=== PATIENT | male | born 1955 | race Hispanic/Latino ===

== ENCOUNTER 2017-11-13 13:33 | Emergency (ER) | payer BC ==
[2017-11-13 14:34] VITALS: BMI 27.3
[2017-11-13 14:38] VITALS: RESP 18; TEMP 97.5
--- NOTE | 2017-11-13 15:10 | ED PDOC ---
Arrival/HPI - General Chief Complaint: ENT Problem Time Seen by Provider: 11/13/17 14:58 Historian: Patient - History of Present Illness Narrative History of Present Illness (Text): 11/13/17 15:00 This 62 yo male with pmh GERD, HTN, colon resection presents to this ED c/o FB sensation on his esophagus after eating a sandwich x 5 hours. Patient stated he was able to drink 1/2 bottle of water without difficulty. Patient denies similar symptoms in the past. Patient denies sob, fever, cp, hemoptysis, n/v, abdominal pain, neck pain, dizziness, rectal bleeding, urinary symptoms or abnormal gait. Time/Duration: Other (noncontributory) Context: Home Past Medical History - Provider Review Nursing Documentation Reviewed: Yes - Infectious Disease Hx of Infectious Diseases: None - Tetanus Immunization Tetanus Immunization: Up to Date - Past Medical History Past Medical History: No Previous - Cardiac Hx Cardiac Disorders: Yes Hx Hypertension: Yes - Pulmonary Hx Respiratory Disorders: Yes Hx Sleep Apnea: Yes (uses cpap at home) - Neurological Hx Neurological Disorder: No Hx Paralysis: No - HEENT Hx HEENT Disorder: No - Renal Hx Renal Disorder: No - Endocrine/Metabolic Hx Endocrine Disorders: Yes Hx Diabetes Mellitus Type 2: Yes - Hematological/Oncological Hx Blood Disorders: Yes Hx Anemia: Yes Hx Blood Transfusions: Yes Hx Blood Transfusion Reaction: No - Integumentary Hx Dermatological Disorder: No - Musculoskeletal/Rheumatological Hx Musculoskeletal Disorders: No - Gastrointestinal Hx Gastrointestinal Disorders: No - Genitourinary/Gynecological Hx Genitourinary Disorders: Yes Hx Prostate Problems: Yes (enlarged) Hx Urinary Tract Infection: Yes - Psychiatric Hx Psychophysiologic Disorder: No Hx Emotional Abuse: No Hx Physical Abuse: No Hx Substance Use: No - Past Surgical History Past Surgical History: No Previous - Surgical History Hx Tonsillectomy: Yes Other/Comment: hernia as an , tonsillectomy, laser prostate sx - Anesthesia Hx Anesthesia: Yes Hx Anesthesia Reactions: No Hx Malignant Hyperthermia: No - Suicidal Assessment Feels Threatened In Home Enviroment: No Family/Social History - Physician Review Nursing Documentation Reviewed: Yes Family/Social History: Other (noncontributory) Smoking Status: Never Smoked Hx Alcohol Use: No Hx Substance Use: No Hx Substance Use Treatment: No Allergies/Home Meds Allergies/Adverse Reactions: Allergies No Known Allergies Allergy (Verified 11/17/16 14:41) Home Medications: Home Meds Medication Instructions Recorded Confirmed Ferrous Sulfate [Feosol] 324 mg PO DAILY 06/13/16 11/13/17 Lisinopril [Zestril] 10 mg PO QAM 06/13/16 11/13/17 Pantoprazole [Protonix] 40 mg PO QAM 06/13/16 11/13/17 Review of Systems - Review of Systems Constitutional: Normal. absent: Fatigue, Weight Change, Fevers, Night Sweats Eyes: Normal ENT: Normal Respiratory: Normal. absent: SOB, Cough Cardiovascular: Normal. absent: Chest Pain, Palpitations Gastrointestinal: Other (see hpi). absent: Abdominal Pain, Stool Changes, Constipation, Diarrhea, Nausea, Vomiting, Appetite Changes, Hematochezia, Hematemesis, Anorexia, Food Intolerance Genitourinary Male: Normal. absent: Dysuria, Frequency Musculoskeletal: Normal. absent: Back Pain, Neck Pain Skin: Normal. absent: Rash Neurological: Normal. absent: Headache, Dizziness Endocrine: Normal Hemo/Lymphatic: Normal Psychiatric: Normal Physical Exam Vital Signs Temp Pulse Resp BP Pulse Ox 11/13/17 19:04 86 18 131/71 97 11/13/17 16:00 94 H 18 135/86 96 11/13/17 14:35 97.5 F L 100 H 18 139/93 H 96 Temperature: Afebrile Blood Pressure: Normal Pulse: Regular Respiratory Rate: Normal Appearance: Positive for: Well-Appearing, Non-Toxic, Comfortable Pain Distress: None Mental Status: Positive for: Alert and Oriented X 3 - Systems Exam Head: Present: Atraumatic, Normocephalic Pupils: Present: PERRL Extroacular Muscles: Present: EOMI Conjunctiva: Present: Normal Mouth: Present: Moist Mucous Membranes Neck: Present: Normal Range of Motion Respiratory/Chest: Present: Clear to Auscultation, Good Air Exchange. No: Respiratory Distress, Accessory Muscle Use Cardiovascular: Present: Regular Rate and Rhythm, Normal S1, S2. No: Murmurs Abdomen: Present: Normal Bowel Sounds. No: Tenderness, Distention, Peritoneal Signs, Rebound, Guarding Back: Present: Normal Inspection. No: CVA Tenderness Upper Extremity: Present: Normal Inspection. No: Cyanosis, Edema Lower Extremity: Present: Normal Inspection. No: Edema Neurological: Present: GCS=15, CN II-XII Intact, Speech Normal, Motor Func Grossly Intact, Normal Sensory Function, Normal Cerebellar Funct, Gait Normal Skin: Present: Warm, Dry, Normal Color. No: Rashes Psychiatric: Present: Alert, Oriented x 3, Normal Insight, Normal Concentration Medical Decision Making ED Course and Treatment: 11/13/17 19:44 Patient tolerated PO fluids. Dr. Romeo examined patient. He recommended liquid diet for at least 2 days. To f/u PMD for GI referral. Re-evaluation Time: 19:44 Reassessment Condition: Re-examined, Improved - Lab Interpretations Lab Results: 11/13/17 15:15 11/13/17 15:15 Lab Results 11/13/17 15:15: Sodium 143, Potassium 4.1, Chloride 107, Carbon Dioxide 28, Anion Gap 11, BUN 26 H, Creatinine 0.9, Est GFR ( Amer) > 60, Est GFR ( Non-Af Amer) > 60, Random Glucose 165 H, Calcium 9.3, Total Bilirubin 0.6, AST 21, ALT 40, Alkaline Phosphatase 63, Total Protein 6.7, Albumin 3.7, Globulin 3.0, Albumin/Globulin Ratio 1.2, Lipase 102 11/13/17 15:15: PT 11.8, INR 1.03, APTT 29.9 11/13/17 15:15: WBC 6.0, RBC 4.84, Hgb 14.7, Hct 43.1, MCV 89.0, MCH 30.4, MCHC 34.1, RDW 12.7, Plt Count 136, MPV 11.9 H, Gran % 76.4 H, Lymph % (Auto) 13.3 L , [place] % (Auto) 6.5 H, Eos % (Auto) 3.5, Baso % (Auto) 0.3, Gran # 4.61, Lymph # (Auto) 0.8 L, [place] # (Auto) 0.4, Eos # (Auto) 0.2, Baso # (Auto) 0.02 I have reviewed the lab results: Yes Interpretation: No clinic. lab abnormalty - RAD Interpretation Narrative RAD Interpretations (Text): 11/13/17 15:37 HISTORY: FB sensation on chest COMPARISON: 11/17/2016 FINDINGS: LUNGS: No active pulmonary disease. PLEURA: No significant pleural effusion identified, no pneumothorax apparent. CARDIOVASCULAR: Normal. OSSEOUS STRUCTURES: No significant abnormalities. VISUALIZED UPPER ABDOMEN: Normal. OTHER FINDINGS: None. IMPRESSION: No active disease. 11/13/17 19:23 PROCEDURE: CT Chest with contrast HISTORY: Foreign body sensation in esophagus. COMPARISON: Comparison made with CTA of the abdomen which image the lower chest 01/13/2016. TECHNIQUE: Contiguous axial images were obtained through the chest with intravenous contrast enhancement. Sagittal and coronal reconstructions were performed. IV contrast: Radiation dose (DLP): 378.38 mGy-cm. This CT exam was performed using one or more of the following dose reduction techniques: Automated exposure control, adjustment of the mA and/or kV according to patient size, and/or use of iterative reconstruction technique. FINDINGS: LUNGS: Mild right atelectasis right posterior sulcus with minimal passive type atelectasis seen in both posterior lower lung zones. There also appears to be some linear scarring in the left lung base and middle lobe regions. No focal consolidation. No evidence of effusion or pneumothorax MEDIASTINUM: Heart size is upper limits of normal/borderline enlarged. No significant pericardial effusion. Ascending thoracic aorta measures approximately 3.3 cm and descending thoracic aorta measures approximately 2.6 cm. Pulmonary trunk measures approximately 2.9 cm. Few small nonspecific mediastinal lymph nodes are present. No significant mediastinal adenopathy. Central airways are midline and patent. No large central endoluminal lesions. Small amount of air is seen intermittently throughout the esophagus however no evidence of radiopaque foreign bodies. There is a small hiatal hernia with minimal wall thickening of the distal esophagus likely due to protrusion of gastric mucosa. Possibility of mild esophagitis not excluded. Followup endoscopy could be performed further evaluation. PLEURA: No effusion or pneumothorax identified. BONES: Mild to moderate multilevel degenerative spondylosis of the thoracic spine. Chronic appearing anterior wedge compression deformity of the T11 and to a lesser degree T9 and T8 as well as T7 segments. UPPER ABDOMEN: The liver exhibits moderate to fairly significant diffuse fatty hepatic infiltration. Re- demonstrated are multiple low-attenuation foci scattered throughout the splenic parenchyma of uncertain etiology Gallbladder is physiologically distended. OTHER FINDINGS: Fatty hepatic infiltration. IMPRESSION: No evidence of radiopaque foreign body seen within the esophagus. Small hiatal hernia with slight wall thickening of the distal esophagus likely due to protrusion gastric mucosa. Possibility of esophagitis not excluded. Followup endoscopy may be prudent for further evaluation to exclude other pathology. Mild bibasilar atelectasis and scarring changes. Fatty hepatic infiltration. Multiple varying sized low-attenuation lesions scattered throughout the splenic parenchyma of uncertain etiology. Rule out infectious, inflammatory of versus neoplastic process. . Clinical correlation recommended. Consider followup pre and post-contrast MRI of the spleen. Radiology Orders: 11/13/17 14:59 CHEST PORTABLE [RAD] Stat 11/13/17 15:00 CHEST W/CONTRAST [CT] Stat - Medication Orders Current Medication Orders: Discontinued Medications Al Hydrox/Mg Hydrox/Simethicone (Maalox Plus 30 Ml) 30 ml PO STAT STA Stop: 11/13/17 19:23 Belladonna/Phenobarbital ( Elixir) 5 ml PO STAT STA Stop: 11/13/17 19:23 Lidocaine HCl (Lidocaine 2% Viscous) 5 ml PO STAT STA Stop: 11/13/17 19:24 Disposition/Present on Arrival - Present on Arrival Any Indicators Present on Arrival: No History of DVT/PE: No History of Uncontrolled Diabetes: No Urinary Catheter: No History of Decub. Ulcer: No History Surgical Site Infection Following: None - Disposition Have Diagnosis and Disposition been Completed?: Yes Diagnosis: Esophagitis, Abnormal CT scan, Dysphagia Disposition: HOME/ ROUTINE Disposition Time: 19:31 Patient Plan: Discharge Patient Problems: Current Active Problems Problem Status Onset Abnormal CT scan Acute Dysphagia Acute Esophagitis Acute Condition: IMPROVED Discharge Instructions (ExitCare): Dysphagia Additional Instructions: Call private doctor for follow up visit in 1-2 days. Take medication as instructed. Return to emergency if symptoms worsen, or unable to swallow, or if new complains arise. Prescriptions: Sucralfate [Carafate] 1 gm PO DAILY #1 bottle Referrals: [facility] Stephanie Chau, [Non-Staff] - Follow up with primary Avelina Cruz MD [Primary Care Provider] - Follow up with primary Deyvi Trujillo MD [Staff Provider] - Follow up with primary Forms: [employer] ([place])
--- NOTE | 2017-11-13 15:25 | RAD ---
HISTORY: FB sensation on chest COMPARISON: 11/17/2016 FINDINGS: LUNGS: No active pulmonary disease. PLEURA: No significant pleural effusion identified, no pneumothorax apparent. CARDIOVASCULAR: Normal. OSSEOUS STRUCTURES: No significant abnormalities. VISUALIZED UPPER ABDOMEN: Normal. OTHER FINDINGS: None. IMPRESSION: No active disease.
[2017-11-13 15:29] LABS: BASO # 0.02 K/mm3 (0.0-2.0); BASO % 0.3 % (0.0-3.0); EOS # 0.2 (0.0-0.7); EOS % 3.5 % (1.5-5.0); GRAN # 4.61 (1.4-6.5); GRAN % 76.4 % (50.0-68.0); HEMOGLOBIN 14.7 g/dL (14.0-18.0); LYMPH # 0.8 (1.2-3.4); LYMPH % 13.3 % (22.0-35.0); MEAN CORPUSCULAR HEMOGLOBIN 30.4 pg (25.0-35.0); MEAN CORPUSCULAR HGB CONC 34.1 g/dl (31.0-37.0); MEAN PLATELET VOLUME 11.9 fl (7.0-11.0); MONO # 0.4 (0.1-0.6); MONO % 6.5 % (1.0-6.0); RBC 4.84 10^6/uL (3.5-6.1); RED CELL DISTRIBUTION WIDTH 12.7 % (11.5-14.5)
[2017-11-13 15:40] LABS: PROTHROMBIN TIME 11.8 SECONDS (9.4-12.5)
[2017-11-13 15:41] LABS: ALB/GLOB RATIO 1.2 (1.1-1.8); ALBUMIN 3.7 g/dL (3.0-4.8); ALT/SGPT 40 U/L (7-56); AST/SGOT 21 U/L (17-59); BLOOD UREA NITROGEN 26 mg/dL (7-21); CALCIUM 9.3 mg/dL (8.4-10.5); GFR AFRICAN-AMERICAN > 60; GFR NON-AFRICAN AMERICAN > 60; INR 1.03 (0.93-1.08); LIPASE 102 U/L (23-300); PARTIAL THROMBOPLASTIN TIME 29.9 Seconds (25.1-36.5)
[2017-11-13] MEDS ORDERED: Iohexol 350 MG/100 ML VIAL ONE (17:21)
[2017-11-13 19:04] VITALS: BP 131/71; PULSE 86; O2SAT 97
--- NOTE | 2017-11-13 19:15 | CT ---
PROCEDURE: CT Chest with contrast HISTORY: Foreign body sensation in esophagus. COMPARISON: Comparison made with CTA of the abdomen which image the lower chest 01/13/2016. TECHNIQUE: Contiguous axial images were obtained through the chest with intravenous contrast enhancement. Sagittal and coronal reconstructions were performed. IV contrast: Radiation dose (DLP): 378.38 mGy-cm. This CT exam was performed using one or more of the following dose reduction techniques: Automated exposure control, adjustment of the mA and/or kV according to patient size, and/or use of iterative reconstruction technique. FINDINGS: LUNGS: Mild right atelectasis right posterior sulcus with minimal passive type atelectasis seen in both posterior lower lung zones. There also appears to be some linear scarring in the left lung base and middle lobe regions. No focal consolidation. No evidence of effusion or pneumothorax MEDIASTINUM: Heart size is upper limits of normal/borderline enlarged. No significant pericardial effusion. Ascending thoracic aorta measures approximately 3.3 cm and descending thoracic aorta measures approximately 2.6 cm. Pulmonary trunk measures approximately 2.9 cm. Few small nonspecific mediastinal lymph nodes are present. No significant mediastinal adenopathy. Central airways are midline and patent. No large central endoluminal lesions. Small amount of air is seen intermittently throughout the esophagus however no evidence of radiopaque foreign bodies. There is a small hiatal hernia with minimal wall thickening of the distal esophagus likely due to protrusion of gastric mucosa. Possibility of mild esophagitis not excluded. Followup endoscopy could be performed further evaluation. PLEURA: No effusion or pneumothorax identified. BONES: Mild to moderate multilevel degenerative spondylosis of the thoracic spine. Chronic appearing anterior wedge compression deformity of the T11 and to a lesser degree T9 and T8 as well as T7 segments. UPPER ABDOMEN: The liver exhibits moderate to fairly significant diffuse fatty hepatic infiltration. Re- demonstrated are multiple low-attenuation foci scattered throughout the splenic parenchyma of uncertain etiology Gallbladder is physiologically distended. OTHER FINDINGS: Fatty hepatic infiltration. IMPRESSION: No evidence of radiopaque foreign body seen within the esophagus. Small hiatal hernia with slight wall thickening of the distal esophagus likely due to protrusion gastric mucosa. Possibility of esophagitis not excluded. Followup endoscopy may be prudent for further evaluation to exclude other pathology. Mild bibasilar atelectasis and scarring changes. Fatty hepatic infiltration. Multiple varying sized low-attenuation lesions scattered throughout the splenic parenchyma of uncertain etiology. Rule out infectious, inflammatory of versus neoplastic process. . Clinical correlation recommended. Consider followup pre and post-contrast MRI of the spleen.
[2017-11-13] MEDS ORDERED: Atrop/Hyosc/Scopal/PB Elixir (120 ml) PO STA (19:22)
[2017-11-13] MEDS ORDERED: Alum-Mag Hydrox-Simethicone Susp (30 mL) PO STA (19:22)
== END 2017-11-13 20:00 | disposition home or self-care (01) ==
LOC: ED 13:33
DX: K20.9 Esophagitis, unspecified (principal); R13.10 Dysphagia, unspecified; R93.8 Abnormal findings on diagnostic imaging of other specified body structures
CPT/HCPCS: 71045; 71260; 80053; 83690; 85025; 85610; 85730; 99283; Q9967

== ENCOUNTER 2018-11-06 20:29 | Emergency (ER) | payer SELFPAY ==
[2018-11-06 20:50] VITALS: BMI 28.1
[2018-11-06 20:52] VITALS: BP 181/109; PULSE 102; RESP 18; TEMP 97.7; O2SAT 95
--- NOTE | 2018-11-06 23:37 | ED PDOC ---
Arrival/HPI - General Chief Complaint: Dental Pain Time Seen by Provider: 11/06/18 21:56 Historian: Patient - History of Present Illness Narrative History of Present Illness (Text): 11/07/18 01:29 63 year old male, whose past medical history includes GERD, hypertension, and diabetes, presents to the emergency department for evaluation of bleeding status post oral surgery procedure. Patient states he had a dental extraction of his right upper tooth today. Patient states when he got home and removed the gauze, he found a lot of blood. Patient got scared and decided to come fore evaluation. Patient is not actively bleeding. But reports a h/o low platelets "many years ago." Patient denies any fever, chills, headache, dizziness, or any other complaint. Time/Duration: Prior to Arrival Symptom Onset: Gradual Symptom Course: Resolved Activities at Onset: Light Context: Home Past Medical History - Provider Review Nursing Documentation Reviewed: Yes - Infectious Disease Hx of Infectious Diseases: None - Tetanus Immunization Tetanus Immunization: Up to Date - Past Medical History Past Medical History: No Previous - Cardiac Hx Cardiac Disorders: Yes Hx Hypertension: Yes - Pulmonary Hx Respiratory Disorders: Yes Hx Sleep Apnea: Yes (uses cpap at home) - Neurological Hx Neurological Disorder: No Hx Paralysis: No - HEENT Hx HEENT Disorder: No - Renal Hx Renal Disorder: No - Endocrine/Metabolic Hx Endocrine Disorders: Yes Hx Diabetes Mellitus Type 2: Yes - Hematological/Oncological Hx Blood Disorders: Yes Hx Anemia: Yes Hx Blood Transfusions: Yes - Integumentary Hx Dermatological Disorder: No - Musculoskeletal/Rheumatological Hx Musculoskeletal Disorders: No - Gastrointestinal Hx Gastrointestinal Disorders: No - Genitourinary/Gynecological Hx Genitourinary Disorders: Yes Hx Prostate Problems: Yes (enlarged) Hx Urinary Tract Infection: Yes - Psychiatric Hx Psychophysiologic Disorder: No Hx Substance Use: No - Past Surgical History Past Surgical History: No Previous - Surgical History Hx Tonsillectomy: Yes Other/Comment: hernia as an , tonsillectomy, laser prostate sx - Anesthesia Hx Anesthesia: Yes Hx Anesthesia Reactions: No Hx Malignant Hyperthermia: No - Suicidal Assessment Feels Threatened In Home Enviroment: No Family/Social History - Physician Review Nursing Documentation Reviewed: Yes Family/Social History: No Known Family HX Smoking Status: Never Smoked Hx Alcohol Use: No Hx Substance Use: No Hx Substance Use Treatment: No Allergies/Home Meds Allergies/Adverse Reactions: Allergies No Known Allergies Allergy (Verified 11/17/16 14:41) Home Medications: Home Meds Medication Instructions Recorded Confirmed Ferrous Sulfate [Feosol] 324 mg PO DAILY 06/13/16 11/13/17 Lisinopril [Zestril] 10 mg PO QAM 06/13/16 11/13/17 Pantoprazole [Protonix] 40 mg PO QAM 06/13/16 11/13/17 Review of Systems - Physician Review All systems were reviewed & negative as marked: Yes - Review of Systems Constitutional: absent: Fevers, Night Sweats Neurological: absent: Headache, Dizziness Physical Exam Vital Signs Reviewed: Yes Vital Signs Temp Pulse Resp BP Pulse Ox 11/06/18 20:51 97.7 F 102 H 18 181/109 H 95 Temperature: Afebrile Blood Pressure: Hypertensive Pulse: Tachycardic Respiratory Rate: Normal Appearance: Positive for: Well-Appearing, Non-Toxic, Comfortable Pain Distress: None Mental Status: Positive for: Alert and Oriented X 3 - Systems Exam Head: Present: Atraumatic, Normocephalic Pupils: Present: PERRL Extroacular Muscles: Present: EOMI Conjunctiva: Present: Normal Mouth: Present: Moist Mucous Membranes, Normal Lips, Normal Tounge. No: Normal Teeth (Surgical sutures in place, no active bleeding to the R upper pre-molar that was extracted) Neck: Present: Normal Range of Motion Neurological: Present: GCS=15, CN II-XII Intact, Speech Normal Skin: Present: Warm, Dry, Normal Color. No: Rashes Psychiatric: Present: Alert, Oriented x 3, Normal Insight, Normal Concentration Medical Decision Making ED Course and Treatment: 11/06/18 23:35 Plan : - Labs Labs ordered due to patient's h/o low platelets. However the patient is refusing labs. Patient refuses labs, further care, evaluation or treatment in the ER. Patient informed of the reasons for the following and planned treatment, which patient understands, however still refuses. Patient informed of the risk and benefits of treatment. Informed that the risk could include worsening of current conditions, undiagnosed conditions, disability or even . Patient understands the following risk and the benefits of treatment. Patient has the capacity to make decisions and still refuses treatment by RN, PA and ER MD. Patient encouraged to return to the ER at any time and to follow up with pmd. - PA / [employer] / Resident Statement MD/DO has reviewed & agrees with the documentation as recorded. - Scribe Statement The provider has reviewed the documentation as recorded by the Zoeibe Alli Velazco Provider Scribe Attestation: All medical record entries made by the Scribe were at my direction and personally dictated by me. I have reviewed the chart and agree that the record accurately reflects my personal performance of the history, physical exam, medical decision making, and the department course for this patient. I have also personally directed, reviewed, and agree with the discharge instructions and disposition. Disposition/Present on Arrival - Present on Arrival Any Indicators Present on Arrival: No History of DVT/PE: No History of Uncontrolled Diabetes: No Urinary Catheter: No History of Decub. Ulcer: No History Surgical Site Infection Following: None - Disposition Have Diagnosis and Disposition been Completed?: Yes Diagnosis: Bleeding gums, S/P tooth extraction Disposition: AGAINST MEDICAL ADVICE Disposition Time: 23:30 Patient Plan: Discharge Condition: STABLE Discharge Instructions (ExitCare): Bleeding Gums, Leaving Against Medical Advice Additional Instructions: Thank you for letting us take care of you today. You were treated for bleeding gums, s/p tooth extraction. The emergency medical care you received today was directed at your acute symptoms. It may take several days for your symptoms to resolve. Return to the Emergency Department if your symptoms worsen, do not improve, or if you have any other problems. Please contact your dentist in 2 days for re-evaluation and follow up. Bring any paperwork you were given at discharge with you along with any medications you are taking to your follow up visit. Our treatment cannot replace ongoing medical care by a primary care provider (PCP) outside of the emergency department. Referrals: Avelina Cruz MD [Primary Care Provider] - Follow up with primary Forms: [employer] (Yoruba)
== END 2018-11-06 23:44 | disposition left against medical advice (07) ==
LOC: ED 20:29
DX: K06.8 Other specified disorders of gingiva and edentulous alveolar ridge (principal); Z98.818 Other dental procedure status

== ENCOUNTER → 2018-11-30 | Outpatient (CLI) | payer BC | LOC: RAD 09:15 ==

== ENCOUNTER 2018-12-04 13:14 | Emergency (ER) | payer BC ==
[2018-12-04 13:15] VITALS: BMI 28.1
[2018-12-04 13:47] VITALS: TEMP 97.7
[2018-12-04] MEDS ORDERED: Sodium Chloride 0.9% 1,000 ML IV STA (13:54)
[2018-12-04 14:27] LABS: BASO # 0.01 K/mm3 (0.0-2.0); BASO % 0.1 % (0.0-3.0); EOS % 0.6 % (1.5-5.0); HEMOGLOBIN 14.1 g/dL (14.0-18.0); LYMPH # 0.6 (1.2-3.4); LYMPH % 7.9 % (22.0-35.0); MEAN CELL VOLUME 88.3 fl (80.0-105.0); MEAN CORPUSCULAR HEMOGLOBIN 29.4 pg (25.0-35.0); MEAN CORPUSCULAR HGB CONC 33.3 g/dl (31.0-37.0); MEAN PLATELET VOLUME 11.9 fl (7.0-11.0); MONO # 0.5 (0.1-0.6); MONO % 7.3 % (1.0-6.0); RBC 4.8 10^6/uL (3.5-6.1); RED CELL DISTRIBUTION WIDTH 12.8 % (11.5-14.5)
[2018-12-04 14:37] LABS: ALBUMIN 3.6 g/dL (3.0-4.8); ALT/SGPT 16 U/L (7-56); AST/SGOT 22 U/L (17-59); BLOOD UREA NITROGEN 57 mg/dL (7-21); CALCIUM 7.9 mg/dL (8.4-10.5); GFR NON-AFRICAN AMERICAN 56
--- NOTE | 2018-12-04 14:40 | ED PDOC ---
Arrival/HPI - General Chief Complaint: Dizziness/Lightheaded Time Seen by Provider: 12/04/18 13:37 Historian: Patient - History of Present Illness Narrative History of Present Illness (Text): 12/04/18 14:38 63 y/o male with past medical history of GERD, hypertension, diabetes, and colon resection, who presents to the emergency department complaining of dizziness and vomiting today. Patient states he has also had chest pain for the past two days but none currently. Patient states that he has taken pepto bismol to help him with his digestions and reports having a normal bowel movement today. Patient denies any blood in stool, fevers, chills, chest pain, shortness of breath, abdominal pain, nausea, vomiting, diarrhea, back pain, neck pain, urinary symptoms, headache, or any other complaints. Time/Duration: 24 hours Symptom Onset: Gradual Symptom Course: Unchanged Activities at Onset: Light Context: Home Past Medical History - Provider Review Nursing Documentation Reviewed: Yes - Infectious Disease Hx of Infectious Diseases: None - Tetanus Immunization Tetanus Immunization: Up to Date - Past Medical History Past Medical History: No Previous - Cardiac Hx Cardiac Disorders: Yes Hx Hypertension: Yes - Pulmonary Hx Respiratory Disorders: Yes Hx Sleep Apnea: Yes (uses cpap at home) - Neurological Hx Neurological Disorder: No Hx Paralysis: No - HEENT Hx HEENT Disorder: No - Renal Hx Renal Disorder: No - Endocrine/Metabolic Hx Endocrine Disorders: Yes Hx Diabetes Mellitus Type 2: Yes - Hematological/Oncological Hx Blood Disorders: Yes Hx Anemia: Yes Hx Blood Transfusions: Yes - Integumentary Hx Dermatological Disorder: No - Musculoskeletal/Rheumatological Hx Musculoskeletal Disorders: No - Gastrointestinal Hx Gastrointestinal Disorders: No - Genitourinary/Gynecological Hx Genitourinary Disorders: Yes Hx Prostate Problems: Yes (enlarged) Hx Urinary Tract Infection: Yes - Psychiatric Hx Psychophysiologic Disorder: No Hx Substance Use: No - Past Surgical History Past Surgical History: No Previous - Surgical History Hx Tonsillectomy: Yes Other/Comment: hernia as an infant, tonsillectomy, laser prostate sx - Anesthesia Hx Anesthesia: Yes Hx Anesthesia Reactions: No Hx Malignant Hyperthermia: No - Suicidal Assessment Feels Threatened In Home Enviroment: No Family/Social History - Physician Review Nursing Documentation Reviewed: Yes Family/Social History: Unknown Family HX Smoking Status: Never Smoked Hx Alcohol Use: No Hx Substance Use: No Hx Substance Use Treatment: No Allergies/Home Meds Allergies/Adverse Reactions: Allergies No Known Allergies Allergy (Verified 11/17/16 14:41) Home Medications: Home Meds Medication Instructions Recorded Confirmed Ferrous Sulfate [Feosol] 324 mg PO DAILY 06/13/16 11/13/17 Lisinopril [Zestril] 10 mg PO QAM 06/13/16 11/13/17 Pantoprazole [Protonix] 40 mg PO QAM 06/13/16 11/13/17 Review of Systems - Physician Review All systems were reviewed & negative as marked: Yes - Review of Systems Constitutional: absent: Weight Change, Fevers Eyes: absent: Vision Changes, Photophobia Respiratory: absent: SOB, Cough, Sputum Cardiovascular: absent: Chest Pain Gastrointestinal: absent: Abdominal Pain, Stool Changes, Constipation, Hematochezia, Hematemesis Musculoskeletal: absent: Back Pain, Neck Pain Skin: absent: Rash, Skin Lesions Neurological: Dizziness (with movement of head). absent: Headache Psychiatric: absent: Anxiety, Depression, Suicidal Ideation Physical Exam Vital Signs Reviewed: Yes Vital Signs Temp Pulse Resp BP Pulse Ox 12/04/18 13:45 97.7 F 97 H 16 119/70 96 12/04/18 13:31 98.4 F 116 H 18 104/70 96 Temperature: Afebrile Blood Pressure: Normal Pulse: Tachycardic Respiratory Rate: Normal Appearance: Positive for: Well-Appearing Pain Distress: None Mental Status: Positive for: Alert and Oriented X 3 - Systems Exam Head: Present: Atraumatic Pupils: Present: PERRL. No: Sluggish Extroacular Muscles: Present: EOMI Conjunctiva: Present: Normal Mouth: Present: Moist Mucous Membranes Neck: Present: Normal Range of Motion. No: JVD Respiratory/Chest: Present: Clear to Auscultation, Good Air Exchange. No: Respiratory Distress, Accessory Muscle Use Cardiovascular: Present: Regular Rate and Rhythm, Normal S1, S2. No: Murmurs Abdomen: No: Tenderness, Distention, Peritoneal Signs Upper Extremity: Present: Normal Inspection. No: Cyanosis, Edema Lower Extremity: Present: Normal Inspection. No: Edema Neurological: Present: GCS=15, CN II-XII Intact, Speech Normal, Motor Func Grossly Intact, Normal Sensory Function, Other (no nystagmus) Skin: Present: Warm, Dry, Normal Color. No: Rashes Psychiatric: Present: Alert, Oriented x 3, Normal Insight, Normal Concentration Medical Decision Making ED Course and Treatment: 12/04/18 15:05 Impression: 63 y/o male who represents to emergency department complaining of dizziness. Differential Diagnosis included but are not limited to: Plan: -- Labs -- meclizine -- Reglan -- Sodium chloride -- IV fluids -- Reassess and disposition Prior Visits: Notes and results from previous visits were reviewed. Progress Notes: - Lab Interpretations Lab Results: Total Bilirubin 0.7 mg/dL (0.2-1.3) 12/04/18 14:13 AST 22 U/L (17-59) 12/04/18 14:13 ALT 16 U/L (7-56) 12/04/18 14:13 Alkaline Phosphatase 43 U/L (38-126) 12/04/18 14:13 Total Protein 7.1 g/dL (5.8-8.3) 12/04/18 14:13 Albumin 3.6 g/dL (3.0-4.8) 12/04/18 14:13 Globulin 3.5 gm/dL 12/04/18 14:13 Albumin/Globulin Ratio 1.0 (1.1-1.8) L 12/04/18 14:13 - EKG Interpretation EKG Interpretation (Text): 12/04/18 13:38 EKG reviewed, sinus at 100 bpm, no ST elevations, no QT interval. Interpreted by ED Physician: Yes Type: 12 lead EKG - Medication Orders Current Medication Orders: Sodium Chloride (Sodium Chloride 0.9%) 1,000 mls @ 999 mls/hr IV .Q1H1M STA Stop: 12/04/18 14:54 Last Admin: 12/04/18 14:15 Dose: 999 mls/hr eMAR Start Stop Document 12/04/18 14:15 BB (Rec: 12/04/18 14:15 BB [id number]) Intravenous Solution Start Date 12/04/18 Start Time 14:15 Discontinued Medications Meclizine HCl (Antivert) 25 mg PO STAT STA Stop: 12/04/18 13:54 Last Admin: 12/04/18 14:14 Dose: 25 mg Metoclopramide HCl (Reglan) 10 mg IVP STAT STA Stop: 12/04/18 13:54 Last Admin: 12/04/18 14:14 Dose: 10 mg IVP Administration Document 12/04/18 14:14 BB (Rec: 12/04/18 14:15 BB [id number]) Charges for Administration # of IVP Administrations 1 - Scribe Statement The provider has reviewed the documentation as recorded by the Scribe [employer] [facility] All medical record entries made by the Scribe were at my direction and personally dictated by me. I have reviewed the chart and agree that the record accurately reflects my personal performance of the history, physical exam, medical decision making, and the department course for this patient. I have also personally directed, reviewed, and agree with the discharge instructions and disposition. Disposition/Present on Arrival - Present on Arrival Any Indicators Present on Arrival: No History of DVT/PE: No History of Uncontrolled Diabetes: No Urinary Catheter: No History of Decub. Ulcer: No History Surgical Site Infection Following: None - Disposition Have Diagnosis and Disposition been Completed?: Yes Diagnosis: Vertigo Disposition: HOME/ ROUTINE Disposition Time: 16:02 Patient Plan: Discharge Condition: IMPROVED Discharge Instructions (ExitCare): Vertigo (a Type of Dizziness) (DC) Print Language: YI Additional Instructions: All medical record entries made by the Scribe were at my direction and personally dictated by me. I have reviewed the chart and agree that the record accurately reflects my personal performance of the history, physical exam, medical decision making, and the department course for this patient. I have also personally directed, reviewed, and agree with the discharge instructions and disposition. Please take medication as needed when symptoms arise Please find time to schedule an appointment with the ENT physician Prescriptions: Meclizine [Antivert] 12.5 mg PO PRN PRN #10 tab PRN Reason: Dizziness Metoclopramide HCl [Reglan] 10 mg PO PRN PRN #10 tablet PRN Reason: Nausea/Vomiting Referrals: Jerry Greene DO [Staff Provider] - Follow up with primary Forms: [employer] (Telugu)
[2018-12-04 15:56] VITALS: RESP 18
[2018-12-04 16:21] VITALS: BP 105/64; PULSE 108; O2SAT 96
--- NOTE | 2018-12-04 21:52 | CARD ---
APPROVED REPORT Date of service: 12/04/2018 EKG Measurement Heart [id number] <Conclusion> Normal sinus rhythm Normal ECG
== END 2018-12-04 16:26 | disposition home or self-care (01) ==
LOC: ED 13:14
DX: R42 Dizziness and giddiness (principal); I10 Essential (primary) hypertension; E11.9 Type 2 diabetes mellitus without complications; K21.9 Gastro-esophageal reflux disease without esophagitis
CPT/HCPCS: 80053; 85025; 93005; 96374; 99285; J2765; J7030